=== PATIENT | female | born 1985 | race Caucasian/White ===

== ENCOUNTER 2016-10-29 14:25 | Emergency (ER) | payer OTHER ==
[2016-10-29 14:32] VITALS: RESP 18
--- NOTE | 2016-10-29 14:59 | CPEKG ---
Heart Rate: 104 RR Interval: 577 P-R Interval: 132 QRSD Interval: 86 QT Interval: 332 QTC Interval: 437 P [place]: 18 QRS [place]: -2 T Wave [place]: 25 EKG Severity - OTHERWISE NORMAL ECG - EKG Impression: SINUS TACHYCARDIA Electronically Signed By: Geronimo Waterman 29-Oct-2016 15:55:07
--- NOTE | 2016-10-29 15:29 | EDPHY ---
H & P Time Seen by Provider: 10/29/16 15:09 HPI/ROS: CHIEF COMPLAINT: Chest pain HISTORY OF PRESENT ILLNESS: 31-year-old female presents to the emergency department with central chest pain that has been intermittent for the last week and half to 2 weeks. The patient feels short of breath although denies pleuritic chest pain. She has been taking a weight loss supplement, phentermine , which she is also trying to wean herself off of. She denies calf pain or swelling. Denies recent travel. He has never had this in the past. REVIEW OF SYSTEMS: Constitutional: No fever, no chills. Eyes: No double or blurry vision. ENT: No sore throat. Respiratory: Shortness of breath. No cough Cardiac: Chest pain as above Gastrointestinal: No abdominal pain, vomiting or diarrhea. Genitourinary: No dysuria. Musculoskeletal: No neck or back pain. Skin: No rashes. Neurological: No headache. Past Medical/Surgical History: Negative Pertinent family medical history: Mother with myocardial infarction in her 40s Social History: Smoking Status: Never smoked Physical Exam: General Appearance: Alert, no distress. Eyes: Pupils equal and round. Extraocular motions are all intact. ENT: Mouth: Mucous membranes moist. Respiratory: No wheezing, rhonchi, or rales, lungs are clear to auscultation. Unable to reproduce pain with palpation to the anterior aspect of her chest. Cardiovascular: Regular rate and rhythm. Gastrointestinal: Abdomen is soft and nontender, no masses, no rebound or guarding, bowel sounds normal. Neurological: Alert and oriented x 3, cranial nerves II through XII grossly intact Skin: Warm and dry, no rashes. Musculoskeletal: Nontender to palpate along the cervical, thoracic or lumbar spine. Neck is supple. Extremities: Full range of motion and no peripheral edema. Psychiatric: Patient is oriented X 3, there is no agitation. Constitutional: Initial Vital Signs Temperature (C) 36.9 C 10/29/16 14:29 Heart Rate 112 H 10/29/16 14:29 Respiratory Rate 18 10/29/16 14:29 Blood Pressure 146/106 H 10/29/16 14:29 O2 Sat (%) 98 10/29/16 14:29 O2 Delivery Mode Room Air Allergies/Adverse Reactions: No Known Allergies Allergy (Verified 10/29/16 14:28) Home Medications: Medication Instructions Recorded Control 10/24/15 Bisacodyl [Dulcolax] 5 mg PO BID #10 tablet. 10/24/15 Bisacodyl/Naph,Mb-Db [Fleet Prep 1 each MC DAILY #1 kit 10/24/15 Kit #1] MINOCYCLINE HCL 10/24/15 Polyethylene Glycol 3350 [Miralax 17 gm PO BID #4 pkt 10/24/15 17 gm (*)] Weight Loss Pill 10/29/16 Medical Decision Making - Diagnostics Imaging Results: Imaging Impressions Chest X-Ray 10/29/16 17:23 Impression: Normal chest. Imaging: I viewed and interpreted images myself ED Course/Re-evaluation: 31-year-old female presents to the emergency department with anterior chest pain. Unable to reproduce with palpation. Laboratory studies including CBC, chemistry, D-dimer and troponin were all negative. Her EKG was unremarkable. Chest x-ray was obtained which is pending. I doubt this patient has a pulmonary embolism. She is not tachycardic. She does not have pleuritic chest pain. Her O2 saturation is 98% on room air. I encouraged close follow-up with her primary care provider. I also encouraged her return to the emergency department if she had any other change in symptoms or if she felt worse in any way. Patient was comfortable with this plan. I also discouraged her from continuing to take the phentermine weight loss supplement. Patient verbalized understanding and agreed. The case was discussed with Dr. Geronimo Waterman, secondary supervising physician, who did not directly evaluate the patient but agrees with treatment and plan. Differential Diagnosis: Chest pain including but not limited to myocardial ischemia, pulmonary embolus, chest wall pain, pleural inflammation and pulmonary infectious causes. - Data Points Laboratory Results: Laboratory Results 10/29/16 16:10 10/29/16 16:10 10/29/16 10/29/16 10/29/16 16:10 16:10 16:10 WBC RBC Hgb Hct MCV MCH MCHC RDW Plt Count MPV Neut % (Auto) Lymph % (Auto) [place] % (Auto) Eos % (Auto) Baso % (Auto) Nucleat RBC Rel Count Absolute Neuts (auto) Absolute Lymphs (auto) Absolute Monos (auto) Absolute Eos (auto) Absolute Basos (auto) Absolute Nucleated RBC Immature Gran % Immature Gran # D-Dimer < 0.27 ug/mLFEU ug/mLFEU (0.00-0.50) Sodium 138 mEq/L mEq/L (134-144) Potassium 3.9 mEq/L mEq/L (3.5-5.2) Chloride 103 mEq/L mEq/L (97-110) Carbon Dioxide 23 mEq/l mEq/l (22-31) Anion Gap 12 mEq/L mEq/L (8-16) BUN 8 mg/dL mg/dL (7-23) Creatinine 0.6 mg/dL mg/dL (0.6-1.0) Estimated GFR > 60 Glucose 80 mg/dL mg/dL (70-100) Calcium 10.1 mg/dL mg/dL (8.5-10.4) Troponin I < 0.012 ng/mL ng/mL (0.000-0.034) Beta HCG, Qual NEGATIVE 10/29/16 16:10 WBC 8.75 10^3/uL 10^3/uL (3.80-9.50) RBC 4.75 10^6/uL 10^6/uL (4.18-5.33) Hgb 14.3 g/dL g/dL (12.6-16.3) Hct 41.2 % % (38.0-47.0) MCV 86.7 fL fL (81.5-99.8) MCH 30.1 pg pg (27.9-34.1) MCHC 34.7 g/dL g/dL (32.4-36.7) RDW 11.9 % % (11.5-15.2) Plt Count 340 10^3/uL 10^3/uL (150-400) MPV 9.3 fL fL (8.7-11.7) Neut % (Auto) 60.9 % % (39.3-74.2) Lymph % (Auto) 28.5 % % (15.0-45.0) [place] % (Auto) 9.1 % % (4.5-13.0) Eos % (Auto) 1.0 % % (0.6-7.6) Baso % (Auto) 0.3 % % (0.3-1.7) Nucleat RBC Rel Count 0.0 % % (0.0-0.2) Absolute Neuts (auto) 5.32 10^3/uL 10^3/uL (1.70-6.50) Absolute Lymphs (auto) 2.49 10^3/uL 10^3/uL (1.00-3.00) Absolute Monos (auto) 0.80 10^3/uL 10^3/uL (0.30-0.80) Absolute Eos (auto) 0.09 10^3/uL 10^3/uL (0.03-0.40) Absolute Basos (auto) 0.03 10^3/uL 10^3/uL (0.02-0.10) Absolute Nucleated RBC 0.00 10^3/uL 10^3/uL (0-0.01) Immature Gran % 0.2 % % (0.0-1.1) Immature Gran # 0.02 10^3/uL 10^3/uL (0.00-0.10) D-Dimer Sodium Potassium Chloride Carbon Dioxide Anion Gap BUN Creatinine Estimated GFR Glucose Calcium Troponin I Beta HCG, Qual Departure - Departure Disposition: Home, Routine, Self-Care Clinical Impression: Shortness of breath Chest pain Qualifiers: Chest pain type: unspecified Qualified Code(s): R07.9 - Chest pain, unspecified Condition: Good Instructions: Chest Pain (ED), Dyspnea (ED) Additional Instructions: Return to the emergency department if he developed recurring chest pain, shortness of breath or if you feel worse in any way. Referrals: Shandra Dillard PA [Primary Care Provider] - 1-2 days without fail Oskar Vilchis MD [Medical Doctor] - As per Instructions ([employer] [facility]) Stand Alone Forms: Work Excuse
[2016-10-29 16:55] LABS: % IMMATURE GRANULYOCYTES 0.2 % (0.0-1.1); ABSOLUTE IMMATURE GRANULOCYTES 0.02 10^3/uL (0.00-0.10); ADD DIFF? NO; ADD MORPH? NO; ADD SCAN? NO; ATYPICAL LYMPHOCYTE FLAG 10 (0-99); FRAGMENT RBC FLAG 0 (0-99); HEMATOCRIT 41.2 % (38.0-47.0); HEMOGLOBIN 14.3 g/dL (12.6-16.3); LEFT SHIFT FLG 0 (0-99); LIPEMIA HEMOLYSIS FLAG 90 (0-99); MEAN CELL HEMOGLOBIN 30.1 pg (27.9-34.1); MEAN CELL HEMOGLOBIN CONCENTR. 34.7 g/dL (32.4-36.7); MEAN CELL VOLUME 86.7 fL (81.5-99.8); MEAN PLATELET VOLUME 9.3 fL (8.7-11.7); PLATELET CLUMPS FLAG 0 (0-99); PLATELET COUNT 340 10^3/uL (150-400); RED BLOOD CELL COUNT 4.75 10^6/uL (4.18-5.33); RED CELL DISTRIBUTION WIDTH 11.9 % (11.5-15.2)
[2016-10-29 16:57] LABS: ANION GAP 12 mEq/L (8-16); CALCIUM 10.1 mg/dL (8.5-10.4); CARBON DIOXIDE 23 mEq/l (22-31); CHLORIDE 103 mEq/L (97-110); CREATININE 0.6 mg/dL (0.6-1.0); GLOMERULAR FILTRATION RATE > 60; GLUCOSE 80 mg/dL (70-100); POTASSIUM 3.9 mEq/L (3.5-5.2); SODIUM 138 mEq/L (134-144)
[2016-10-29 17:09] LABS: TROPONIN I < 0.012 ng/mL (0.000-0.034)
[2016-10-29 17:30] VITALS: PULSE 80; TEMP 99; O2SAT 96
[2016-10-29 18:25] VITALS: BP 142/98
== END 2016-10-29 18:25 | disposition home or self-care (01) ==
DX: R07.9 Chest pain, unspecified (principal); R06.02 Shortness of breath

== ENCOUNTER → 2017-06-04 | Outpatient (CLI) | payer OTHER | LOC: FIMAGING 12:08 | PROVIDERS: ATTEND Family Medicine | DX: R82.99 Other abnormal findings in urine (principal) ==